=== PATIENT | female | born 1955 | race Caucasian/White ===

== ENCOUNTER → 2016-08-31 | Outpatient (CLI) | payer OTHER ==
[2016-08-09] VITALS (220 sets, daily range): O2SAT 91–100
[2016-08-10 00:02] VITALS: O2SAT 97
[2016-08-10 00:03] VITALS: O2SAT 97
[2016-08-10 05:00] VITALS: O2SAT 90
[2016-08-10 07:46] VITALS: O2SAT 93
[~2016-08-31] MED LIST: ALDACTONE 25MG25 M1 PO; ALLEGRA 180MG180 MG PO; ASPIRIN 32325 MG/TAB PO; ASPIRIN 81M81 MG/TA2 PO; CALCIUM 600-D 61 TAB PO; COREG 6.256.25 MG/TA PO; COZAAR 25MG25 MG/TAB PO; FISH OIL 1000MG1 CAP PO; FLEXERIL 1010 MG/TAB PO; GLUCOPHAGE500 MG/TAB PO; LASIX 20MG TABL20 MG PO; LIPITOR 40MG TA40 MG PO; MULTIPLE VITAMI1 CAP PO; NITROSTAT0.4 MG/TAB SL; PRIL40 PO; PROAIR HFA0.09 MG/AC IH; TYLENOL 8 HR PO; TYLENOL PM EXTR1 TA1 PO; VITAMIN C500 MG PO; ZOLOFT 50MG50 MG PO
== END ==
LOC: COL.PUL 12:42
DX: R06.02 Shortness of breath (principal); G47.39 Other sleep apnea

== ENCOUNTER → 2021-04-22 | Outpatient (CLI) | payer MEDICARE, OTHER ==
[~2021-04-22] MED LIST changes: +BREO IH; +EFFEXOR-XR150 MG PO; +GLUCOPHAGE1000 MG PO; +IMDUR 30MG30 MG/TAB PO; +INCRUSE EL62.5 MCG/A IH; -MULTIPLE VITAMI1 CAP PO; +MULTIPLE VITAMI1 TA5 PO; +OMEGA-3 1000 MG1 CAP PO; +PLAVIX 75MG TAB75 MG PO; +PROTONIX 40MG T40 MG PO; +REQUIP 0.5MG0.5 MG PO; +THEO-DUR 3300 MG/TAB PO
== END ==
LOC: COL.RAD 13:16
DX: Z12.2 Encounter for screening for malignant neoplasm of respiratory organs (principal); R91.1 Solitary pulmonary nodule; Z87.891 Personal history of nicotine dependence

== ENCOUNTER 2021-06-18 13:05 | Day surgery (SDC) | payer MEDICARE, OTHER ==
[2021-06-18] VITALS (9 sets, daily range): BP systolic 126–156; BP diastolic 62–77; PULSE 72–109; TEMP 97.4–98.7
[~2021-06-18] VITALS: Ht 162.6 cm; Wt 113.5 kg
--- NOTE | 2021-06-18 12:20 | NUR ---
ELDER Swain was notified that the patient has not stopped her home plavix prior to surgery. He verbalized understanding and has no new orders at this time.
[~2021-06-18 13:05] MED LIST changes: -BREO IH; -EFFEXOR-XR150 MG PO; -GLUCOPHAGE1000 MG PO; -IMDUR 30MG30 MG/TAB PO; -INCRUSE EL62.5 MCG/A IH; -OMEGA-3 1000 MG1 CAP PO; -PLAVIX 75MG TAB75 MG PO; -PROTONIX 40MG T40 MG PO; -REQUIP 0.5MG0.5 MG PO; -THEO-DUR 3300 MG/TAB PO
[2021-06-18] MEDS ORDERED: OMEGA-3 1000 MG1 CAP PO (13:36)
[2021-06-18] MEDS ORDERED: GLUCOPHAGE1000 MG PO (13:37)
[2021-06-18] MEDS ORDERED: THEO-DUR 3300 MG/TAB PO (13:38)
[2021-06-18] MEDS ORDERED: REQUIP 0.5MG0.5 MG PO (13:38)
[2021-06-18] MEDS ORDERED: IMDUR 30MG30 MG/TAB PO (13:40)
[2021-06-18] MEDS ORDERED: PLAVIX 75MG TAB75 MG PO (13:40)
[2021-06-18] MEDS ORDERED: PROTONIX 40MG T40 MG PO (13:41)
[2021-06-18] MEDS ORDERED: EFFEXOR-XR150 MG PO (13:41)
[2021-06-18] MEDS ORDERED: INCRUSE EL62.5 MCG/A IH (13:42)
[2021-06-18] MEDS ORDERED: BREO IH (13:43)
--- NOTE | 2021-06-18 21:30 | NUR ---
Pt. sitting up in bed at this time. Pt. is A&OX3, assessment complete. IV to rt. wrist patent, IV fluids infusing per orders. Three way jamison with CBI. Urine is diggs at this time, not clots noted. Pt. denies pain or other needs, call light within reach.
[2021-06-19 03:25] VITALS: BP 131/65; PULSE 73; TEMP 98
[2021-06-19 09:57] VITALS: BP 138/70; PULSE 86; TEMP 97.2
--- NOTE | 2021-06-19 10:45 | NUR ---
Patient sitting up in chair. Her daughters at bedside. rounded this am & plan of care reviewed extensivly. Porter primed & pulled per orders & 6 bottle routine started. Patient given am medications including plavix, which was clarified to give per . Patient also given PRN Levsin & Azo for bladder spasm relief. Patient has voided 3 times with few clots noted. She is dressed & ready for discharge. Will await her to complete 6 bottle routine.
--- NOTE | 2021-06-19 12:05 | NUR ---
Patient ready for discharge. 6 bottle routine completed. no further clots noted & urine pink tinged. Spoke to & script called into pharmacy of choice for Levsin & Azo. Patient reports the pain wad relieved with the medications. Patient given all discharge education, including medication list with last dose take. She is aware to call with any questions and or concerns. Her daughters taking her home. Patient wheeled out with all belongings.
== END 2021-06-19 12:05 | disposition home or self-care (01) ==
LOC: SDCO 13:05 → SURG 18:08 → SDCO 06-19 12:05
DX: C67.4 Malignant neoplasm of posterior wall of bladder (principal); N13.30 Unspecified hydronephrosis; J43.9 Emphysema, unspecified; E11.9 Type 2 diabetes mellitus without complications; E78.5 Hyperlipidemia, unspecified; I11.0 Hypertensive heart disease with heart failure; I50.9 Heart failure, unspecified; G47.33 Obstructive sleep apnea (adult) (pediatric); K21.9 Gastro-esophageal reflux disease without esophagitis; I25.10 Atherosclerotic heart disease of native coronary artery without angina pectoris; I34.0 Nonrheumatic mitral (valve) insufficiency; I25.2 Old myocardial infarction; M19.90 Unspecified osteoarthritis, unspecified site; Z79.84 Long term (current) use of oral hypoglycemic drugs; Z79.02 Long term (current) use of antithrombotics/antiplatelets; Z79.82 Long term (current) use of aspirin; Z85.42 Personal history of malignant neoplasm of other parts of uterus; Z95.818 Presence of other cardiac implants and grafts; Z99.81 Dependence on supplemental oxygen; Z87.891 Personal history of nicotine dependence; Z79.899 Other long term (current) drug therapy
CPT/HCPCS: OP; J0690; J1100; J2405; J2704; J3010; J3480

== ENCOUNTER → 2021-06-25 | Outpatient (CLI) | payer MEDICARE, OTHER ==
[~2021-06-25] MED LIST changes: +BREO IH; +EFFEXOR-XR150 MG PO; +GLUCOPHAGE1000 MG PO; +IMDUR 30MG30 MG/TAB PO; +INCRUSE EL62.5 MCG/A IH; +OMEGA-3 1000 MG1 CAP PO; +PLAVIX 75MG TAB75 MG PO; +PROTONIX 40MG T40 MG PO; +REQUIP 0.5MG0.5 MG PO; +THEO-DUR 3300 MG/TAB PO
== END ==
LOC: COL.VAS 14:20
DX: I82.401 Acute embolism and thrombosis of unspecified deep veins of right lower extremity (principal)

== ENCOUNTER 2021-10-11 13:30 | Outpatient (RCR) | payer MEDICARE, OTHER ==
[2021-09-22 14:00] VITALS: BP 140/70; PULSE 106; TEMP 98.5
[2021-09-22 14:17] LABS: HEMOGLOBIN 10.3 g/dl (12.5-16.0); MEAN CELL VOLUME 90 fl (80.0-100.0); MEAN CORPUSCULAR HEMOGLOBIN 29 pg (27-31); MEAN CORPUSCULAR HGB CONC 32 g/dl (33.0-37.0); MEAN PLATELET VOLUME 10.3 fl (7.4-10.4); PLATELET COUNT 208 K/mm3 (130-400); RED BLOOD COUNT 3.57 M/mm3 (4.10-5.30)
[2021-09-22 14:29] LABS: ALBUMIN 2.2 gm/dL (3.4-4.8); BILIRUBIN,TOTAL 0.6 mg/dL (0.2-1.2); CALCIUM 8.5 mg/dL (8.4-10.2); CREATININE, serum 1.64 mg/dL (0.57-1.11); MAGNESIUM 1.6 mg/dL (1.6-2.6); POTASSIUM 3.3 mmol/L (3.5-4.5); TOTAL PROTEIN 6.1 gm/dL (6.2-8.1)
[2021-09-22 14:42] LABS: ANISOCYTOSIS 2+; BAND 8 % (0-10); LYMPHOCYTE 11 % (20.0-51.0); MICROCYTOSIS 1+; NEUTROPHILS 79 % (42.0-75.2); PLATELET ESTIMATE NORMAL (NORMAL); SCHISTOCYTES 1+
[2021-09-22 14:43] LABS: OVALOCYTES 1+
[2021-09-29 13:40] VITALS: BP 93/63; PULSE 98; TEMP 98.2
[2021-09-29 13:42] LABS: MEAN CELL VOLUME 92 fl (80.0-100.0); MEAN CORPUSCULAR HGB CONC 32 g/dl (33.0-37.0); MEAN PLATELET VOLUME 9.4 fl (7.4-10.4); PLATELET COUNT 251 K/mm3 (130-400); RED BLOOD COUNT 3.36 M/mm3 (4.10-5.30); REDCELL DISTRIBUTION WIDTH-CV 23.9 % (11.5-14.5)
[2021-09-29 14:00] LABS: ALBUMIN 2.2 gm/dL (3.4-4.8); BILIRUBIN,TOTAL 0.5 mg/dL (0.2-1.2); CALCIUM 8.5 mg/dL (8.4-10.2); CREATININE, serum 1.71 mg/dL (0.57-1.11); TOTAL PROTEIN 5.8 gm/dL (6.2-8.1)
[2021-09-29 14:05] LABS: POTASSIUM 2.9 mmol/L (3.5-4.5)
[2021-09-29 14:13] LABS: BAND 25 % (0-10); LYMPHOCYTE 7 % (20.0-51.0); NEUTROPHILS 60 % (42.0-75.2); NUCLEATED RED BLOOD CELL 6 (0-6); PLATELET ESTIMATE NORMAL (NORMAL)
[2021-09-29 14:14] LABS: ANISOCYTOSIS 3+
[2021-09-29 14:23] LABS: HEMOGLOBIN 9.8 g/dl (12.5-16.0); MEAN CORPUSCULAR HEMOGLOBIN 29 pg (27-31)
[2021-10-06 13:47] LABS: MEAN CELL VOLUME 92 fl (80.0-100.0); MEAN CORPUSCULAR HGB CONC 32 g/dl (33.0-37.0); PLATELET COUNT 284 K/mm3 (130-400); RED BLOOD COUNT 3.25 M/mm3 (4.10-5.30); REDCELL DISTRIBUTION WIDTH-CV 24.6 % (11.5-14.5)
[2021-10-06 13:51] LABS: HEMATOCRIT 29.8 % (37.0-47.0); HEMOGLOBIN 9.6 g/dl (12.5-16.0); MEAN CORPUSCULAR HEMOGLOBIN 30 pg (27-31)
[2021-10-06 14:00] VITALS: BP 80/45; PULSE 58; TEMP 97.6
[2021-10-06 14:02] LABS: ALBUMIN 2.2 gm/dL (3.4-4.8); BILIRUBIN,TOTAL 0.5 mg/dL (0.2-1.2); CALCIUM 8.2 mg/dL (8.4-10.2); CREATININE, serum 1.84 mg/dL (0.57-1.11); POTASSIUM 3.4 mmol/L (3.5-4.5); TOTAL PROTEIN 5.9 gm/dL (6.2-8.1)
[2021-10-06 14:14] LABS: BAND 2 % (0-10); LYMPHOCYTE 11 % (20.0-51.0); NEUTROPHILS 84 % (42.0-75.2)
[2021-10-06 14:15] LABS: ANISOCYTOSIS 3+; PLATELET ESTIMATE NORMAL (NORMAL)
[~2021-10-11] VITALS: Ht 162.6 cm; Wt 111.9 kg
[~2021-10-11 13:30] MED LIST changes: +CIPRO 500MG TA500 MG PO; +ELIQUIS 5MG PO; +GLUCOTROL 5M5 MG/TAB PO; -LASIX 20MG TABL20 MG PO; +LASIX 40MG TABL40 MG PO
--- NOTE | 2021-10-11 15:15 | NUR ---
Called pt because she did not make it to appointment to remove PICC line. Pt states " the chemo girls said I could leave it in for my surgery tomorrow." This nurse called Swathi at Dr. Vizcaino's office and gave her this information and they sent an order to hold off on the PICC removal.
--- NOTE | 2021-10-14 11:47 | NUR ---
Contacted patient's daughter Callie. Azevedo is in the hospital at [facility]. The plan is to admit her to a detention facility. Might leave PICC in place and/or remove. Aske Babita to contact me and let me know what happens. Phone number provided.
[2021-11-13] MEDS ORDERED: COUMADIN 2MG2 MG/TAB PO (14:43)
[2021-11-13] MEDS ORDERED: LASIX 40MG TABL40 MG PO (14:47)
[2021-11-13] MEDS ORDERED: MUCINEX 60600 MG/TA1 PO (14:49)
[2021-11-13] MEDS ORDERED: REMERON 15M15 MG/TA1 PO (14:54)
[2021-11-13] MEDS ORDERED: K-TAB10 PO (16:20)
[2021-11-13] MEDS ORDERED: ATROVENT I0.2 MG/1 M IH (17:12)
[2021-11-13] MEDS ORDERED: REGLAN 5MG T5 MG/TAB PO (17:30)
[2021-11-13] MEDS ORDERED: ZOFRAN 4MG T4 MG/TAB PO (17:33)
[2021-11-13] MEDS ORDERED: TYLENOL 325MG325 MG PO (17:34)
[2021-11-13] MEDS ORDERED: NITROSTAT0.4 MG/TAB SL (17:37)
[2021-11-13] MEDS ORDERED: IMODIUM 2MG CAPS2 MG PO (17:37)
[2021-11-13] MEDS ORDERED: ZYRTEC5 MG PO (17:45)
[2021-11-22] MEDS ORDERED: TRANSDERM-0.5 MG/21 TD (08:49)
[2021-11-22] MEDS ORDERED: SYSTANE 0.4%-0.1 SOL OU (08:49)
[2021-11-22] MEDS ORDERED: KEPPRA750 MG PO (08:49)
[2021-11-22] MEDS ORDERED: DEPAKOTE500 MG PO (08:49)
[2021-11-22] MEDS ORDERED: DULCOLAX S10 MG/SUPP RC (08:49)
[2021-11-22] MEDS ORDERED: ROXANOL 20MG20 MG/ML SL (08:50)
[2021-11-22] MEDS ORDERED: ATIVAN 1MG T1 MG/TAB PO (08:50)
== END 2021-10-18 | disposition home or self-care (01) ==
LOC: EUO
PROVIDERS: Internal Medicine
DX: C67.2 Malignant neoplasm of lateral wall of bladder (principal); R91.1 Solitary pulmonary nodule; Z85.42 Personal history of malignant neoplasm of other parts of uterus